=== PATIENT | female | born 1940 | race Caucasian/White ===

== ENCOUNTER 2021-08-06 18:55 | Emergency (ER) | payer MEDICARE ==
[2021-08-06 22:24] LABS: BILIRUBIN NEGATIVE (NEGATIVE); BLOOD NEGATIVE Ery/uL (NEGATIVE); CLARITY CLEAR (CLEAR); COLOR YELLOW (YELLOW); GLUCOSE (U) NORMAL (NORMAL); LEUKOCYTES TRACE Leu/uL (NEGATIVE); NITRITE NEGATIVE (NEGATIVE); PROTEIN NEGATIVE (NEGATIVE); SPECIFIC GRAVITY 1.015 (1.001-1.030); UROBILINOGEN 0.2 mg/dL (0.2-1.0); pH 6.5 (5.0-9.0)
[2021-08-06 22:30] LABS: BACTERIA TRACE; RENAL EPITHELIAL CELLS RARE; SQUAMOUS EPITHELIAL CELLS RARE; TRANSITIONAL EPITHELIAL CELLS RARE; URINARY RBC RARE
[2021-08-07 02:12] LABS: BASOPHIL 0.3 % (0-2); EOSINOPHIL 2.4 % (0-7); HCT 39.5 % (37.0-47.0); HGB 13.5 g/dl (12.5-16.0); LYMPHOCYTE 28.8 % (15-48); MCH 29.7 pg (25.0-31.0); MCHC 34.2 g/dL (32.0-36.0); MPV 9.9 fL (6.0-9.5); NEUTROPHIL 59.3 % (41-80); NRBC 0; PLT 169 K/uL (150-400); RBC 4.54 M/uL (4.20-5.40); RDW 12.2 % (11.5-14.0); WBC 5.8 K/uL (4.0-10.5)
[2021-08-07 02:23] LABS: ALBUMIN 4.2 g/dL (3.4-5.0); BILIRUBIN - TOTAL 0.8 mg/dL (0.2-1.0); BUN/CREAT RATIO (CALC) 21.8 RATIO; CREATININE 1.1 mg/dL (0.51-0.95); GLOBULIN (CALCULATION) 2.3 g/dL; POTASSIUM 3.6 mmol/L (3.5-5.1); TOTAL PROTEIN 6.5 g/dL (6.4-8.2)
[2021-08-07] MEDS ORDERED: MACROBID100 MG PO (02:24)
== END 2021-08-07 03:10 | disposition home or self-care (01) ==
LOC: FER 18:55
PROVIDERS: Emergency Medicine
DX: N39.0 Urinary tract infection, site not specified (principal); R41.82 Altered mental status, unspecified; E11.22 Type 2 diabetes mellitus with diabetic chronic kidney disease; N18.9 Chronic kidney disease, unspecified
CPT/HCPCS: 36415; 70450; 80053; 81001; 85025; 99284